=== PATIENT | male | born 2000 | race Caucasian/White ===

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

== ENCOUNTER → 2022-09-26 | Outpatient (CLI) | payer MEDICAID | LOC: LAB 15:26 | DX: R11.0 Nausea (principal); Z20.822 Contact with and (suspected) exposure to COVID-19 ==

== ENCOUNTER → 2023-01-07 | Outpatient (CLI) | payer MEDICAID | LOC: RAD 08:43 | DX: R10.9 Unspecified abdominal pain (principal) ==